=== PATIENT | female | born 1935 | race Caucasian/White ===

== ENCOUNTER 2017-07-24 07:05 | Day surgery (SDC) | payer MEDICARE ==
[2017-07-24] MEDS ORDERED: Lactated Ringers 1,000 ML IV SCH (07:30)
[2017-07-24] MEDS ORDERED: Propofol 200 MG/20 ML SDV ONE (07:55)
[2017-07-24] MEDS ORDERED: Midazolam 1 MG/ML 2 ML SDV ONE (07:55)
[2017-07-24] MEDS ORDERED: fentaNYL 100 MCG/2 ML SDV ONE (07:55)
[2017-07-24 10:08] VITALS: BP 153/74
--- NOTE | 2017-07-24 12:43 | OR ---
DATE OF PROCEDURE: 07/24/2017 PREOPERATIVE DIAGNOSIS: History of colonic adenomatous polyps. POSTOPERATIVE DIAGNOSES: Diverticulosis, multiple colon polyps, and history of colonic adenomatous polyps. PROCEDURE: Colonoscopy to the cecum with biopsy resection of small polyps at 35 cm, 45 cm, 75 cm, right colon, and proximal transverse colon. SURGEON: Anthony Helm M.D. ANESTHESIA: IV anesthesia with monitored anesthesia care. INDICATION: This 81-year-old white female is here for a colonoscopy because of a history of adenomatous colon polyps. I counseled her for the procedure, including risks and alternatives, and she gave her informed consent to proceed. DESCRIPTION OF PROCEDURE: The patient was placed in the left lateral decubitus position. IV anesthesia was administered by the Anesthesia Service. Time-out was held. A rectal exam was performed, which was unremarkable. The flexible video Olympus colonoscope was introduced through her anus, up her rectum, and out her colon, all the way to the cecum. En route, we encountered polyps at 35 cm, 45 cm, and 75 cm, which were removed with the biopsy forceps. In the right colon, we then also saw another one, which was again small and removed with the biopsy forceps. Once the cecum was reached, the scope was slowly withdrawn, examining the mucosa throughout. We saw another polyp in the proximal transverse colon, which was removed with the biopsy forceps. The scope was withdrawn further with no other lesions noted until left colon was reached. Here and in the sigmoid colon, we saw a few scattered diverticula. There was no bleeding or inflammation associated with them. In the rectum, the scope was retroflexed with the distal rectum appearing unremarkable. The scope was straightened and removed. She tolerated the procedure well. Anthony Helm MD /[id number]
== END 2017-07-24 10:15 | disposition home or self-care (01) ==
LOC: JP.SDS 07:05
PROVIDERS: ATTEND Surgery
DX: D12.0 Benign neoplasm of cecum (principal); D12.2 Benign neoplasm of ascending colon; D12.3 Benign neoplasm of transverse colon; K57.30 Diverticulosis of large intestine without perforation or abscess without bleeding; I12.9 Hypertensive chronic kidney disease with stage 1 through stage 4 chronic kidney disease, or unspecified chronic kidney disease; E11.22 Type 2 diabetes mellitus with diabetic chronic kidney disease; N18.3 Chronic kidney disease, stage 3 (moderate); E78.5 Hyperlipidemia, unspecified; E03.9 Hypothyroidism, unspecified; Z86.010 Personal history of colon polyps; Z88.5 Allergy status to narcotic agent; Z88.8 Allergy status to other drugs, medicaments and biological substances
CPT/HCPCS: 45380; 88305; J2250; J2704; J3010; J7120

== ENCOUNTER 2020-08-05 06:14 | Day surgery (SDC) | payer MEDICARE ==
[2020-08-05] MEDS ORDERED: Dextrose 5%-Lactated Ringers 1,000 ML IV SCH (07:00)
[2020-08-05] MEDS ORDERED: fentaNYL 100 MCG/2 ML SDV ONE (07:21)
[2020-08-05] MEDS ORDERED: Propofol 200 MG/20 ML SDV ONE ×2 (07:21→08:58)
[2020-08-05] MEDS ORDERED: Metoprolol Tartrate 25 MG Tab PO ONE (07:30)
[2020-08-05 10:18] VITALS: BP 147/81; PULSE 68
--- NOTE | 2020-08-26 14:28 | OR ---
DATE OF PROCEDURE: 08/05/2020 SURGEON: Kin Stratton MD PREOPERATIVE DIAGNOSIS: History of colon polyps. POSTOPERATIVE DIAGNOSIS: Multiple (seven polyps) involving ascending colon, hepatic flexure, and splenic flexure. OPERATIVE PROCEDURE: Flexible colonoscopy with: 1. Polypectomy by snare technique x5. 2. Polypectomy by cold biopsy forceps x2. ANESTHESIA: IV sedation. INDICATIONS FOR PROCEDURE: This is an 85-year-old female presenting for followup colonoscopy who has history of previous colon polyps in the past. Plan is to proceed with colonoscopy with biopsies and/or polypectomy. Potential risks including bleeding and perforation were discussed, and the patient wishes to proceed. DETAILS OF PROCEDURE: The patient was taken to the operating room and placed in a left lateral decubitus position. IV sedation was administered, after which the initial digital rectal exam was performed and was unremarkable. Colonoscope was then passed into the rectum with retroflexion revealing uncomplicated hemorrhoidal columns. Scope was eventually passed to the level of the cecum. The prep was fairly good with only small amount of liquid stool being present. Overall, the patient had a total of seven polyps involving the ascending colon, hepatic flexure, and splenic flexure. Two of these, one in the ascending colon and one in the hepatic flexure were small enough to be removed by cold biopsy forceps. The remainder were removed by means of a snare technique. Each of these were sent for histologic evaluation and good hemostasis was noted. Procedure was then concluded. The size of these were up to roughly 8 mm to 10 mm and likely all benign based on their size case. The patient given the multitude of polyps will probably undergo a repeat colonoscopy in one year. Kin Stratton MD /[id number]
== END 2020-08-05 10:29 | disposition home or self-care (01) ==
LOC: JP.SDS 06:14
PROVIDERS: ATTEND Surgery
DX: Z12.11 Encounter for screening for malignant neoplasm of colon (principal); D12.2 Benign neoplasm of ascending colon; D12.3 Benign neoplasm of transverse colon; K64.9 Unspecified hemorrhoids; I48.91 Unspecified atrial fibrillation; K21.9 Gastro-esophageal reflux disease without esophagitis; N18.30 Chronic kidney disease, stage 3 unspecified; E11.22 Type 2 diabetes mellitus with diabetic chronic kidney disease
CPT/HCPCS: 45380; 45385; 88305; A9270; J2704; J3010; J7121

== ENCOUNTER 2021-08-08 06:23 | Day surgery (SDC) | payer MEDICARE ==
[2021-08-08] MEDS ORDERED: Lactated Ringers 1,000 ML IV SCH (07:00)
[2021-08-08] MEDS ORDERED: fentaNYL 100 MCG/2 ML SDV ONE (07:10)
[2021-08-08] MEDS ORDERED: Propofol 200 MG/20 ML SDV ONE (07:10)
[2021-08-08 08:59] VITALS: PULSE 63
[2021-08-08 09:05] VITALS: BP 162/87
== END 2021-08-08 09:24 | disposition home or self-care (01) ==
LOC: JP.SDS 06:23
PROVIDERS: ATTEND Family Medicine
DX: Z12.11 Encounter for screening for malignant neoplasm of colon (principal); D12.0 Benign neoplasm of cecum; D12.2 Benign neoplasm of ascending colon; I13.0 Hypertensive heart and chronic kidney disease with heart failure and stage 1 through stage 4 chronic kidney disease, or unspecified chronic kidney disease; I48.91 Unspecified atrial fibrillation; N18.30 Chronic kidney disease, stage 3 unspecified; E11.22 Type 2 diabetes mellitus with diabetic chronic kidney disease; E03.9 Hypothyroidism, unspecified; M81.0 Age-related osteoporosis without current pathological fracture; K21.9 Gastro-esophageal reflux disease without esophagitis; Z88.5 Allergy status to narcotic agent; Z88.8 Allergy status to other drugs, medicaments and biological substances; Z98.890 Other specified postprocedural states; Z90.49 Acquired absence of other specified parts of digestive tract
CPT/HCPCS: J2704; J3010; J7120

== ENCOUNTER 2023-01-20 13:26 | Emergency (ER) | payer MEDICARE ==
[2023-01-20] MEDS ORDERED: Methocarbamol 500 MG Tab PO ONE (14:27)
[2023-01-20 15:03] VITALS: BP 181/94; PULSE 60
== END 2023-01-20 15:18 | disposition home or self-care (01) ==
LOC: JP.ED 13:26
DX: S16.1XXA Strain of muscle, fascia and tendon at neck level, initial encounter (principal); E11.9 Type 2 diabetes mellitus without complications; M19.90 Unspecified osteoarthritis, unspecified site; I48.91 Unspecified atrial fibrillation; E78.00 Pure hypercholesterolemia, unspecified; I10 Essential (primary) hypertension; Z95.0 Presence of cardiac pacemaker; Z86.16 Personal history of COVID-19; Z79.01 Long term (current) use of anticoagulants; Z79.82 Long term (current) use of aspirin; Z79.899 Other long term (current) drug therapy; Z88.5 Allergy status to narcotic agent; Z88.8 Allergy status to other drugs, medicaments and biological substances
CPT/HCPCS: 99283; A9270

== ENCOUNTER 2023-05-20 10:41 | Emergency (ER) | payer MEDICARE ==
[2023-05-20 12:00] LABS: CORONAVIRUS COVID-19 NAA NEGATIVE (NEGATIVE); INFLUENZA A NAA NEGATIVE (NEGATIVE); INFLUENZA B NAA NEGATIVE (NEGATIVE); RESPIRATORY SYNCYTIAL VIR NAA NEGATIVE (NEGATIVE)
[2023-05-20 12:00] LABS: BASOPHILS PERCENT AUTO 0.2 % (0.1-1.3); EOSINOPHILS ABSOLUTE AUTO 0.12 K/uL (0.00-0.40); EOSINOPHILS PERCENT AUTO 2.2 % (0.0-5.4); HEMATOCRIT 33.8 % (34.3-46.0); HEMOGLOBIN 11.1 g/dL (11.2-15.5); IMMATURE GRAN ABSOLUTE AUTO 0.05 K/uL (0.00-0.23); IMMATURE GRAN PERCENT AUTO 0.9 % (0.0-0.7); LYMPHOCYTES ABSOLUTE AUTO 0.54 K/uL (0.8-3.3); LYMPHOCYTES PERCENT AUTO 9.7 % (11.4-47.7); MEAN CORPUSCULAR HEMOGLOBIN 32.2 pg (31.6-35.5); MEAN CORPUSCULAR HGB CONC 32.8 g/dL (31.6-35.5); MONOCYTES ABSOLUTE AUTO 0.53 K/uL (0.20-0.90); MONOCYTES PERCENT AUTO 9.5 % (3.3-12.6); NEUTROPHILS ABSOLUTE AUTO 4.32 K/uL (1.0-7.6); NEUTROPHILS PERCENT AUTO 77.5 % (40.0-78.1); PLATELET COUNT,PLT 193 K/uL (130-375); RED BLOOD CELL COUNT 3.45 M/uL (3.77-5.24); WHITE BLOOD CELL COUNT,WBC 5.6 K/uL (3.2-11.0)
[2023-05-20 12:01] LABS: BASOPHILS ABSOLUTE AUTO 0.01 K/uL (0.00-0.10)
[2023-05-20 12:18] LABS: INR 2.1
[2023-05-20 12:30] LABS: ANION GAP 13.9 mmol/L (5.0-14.0); CALCIUM 8.5 mg/dL (8.5-10.1); CREATININE 1.2 mg/dL (0.6-1.0); EST CRCL DRUG DOSING (CG) 23.72 mL/min; POTASSIUM,K 3.9 mmol/L (3.6-5.2)
[2023-05-20 14:40] VITALS: BP 107/71; PULSE 64
== END 2023-05-20 17:05 | disposition home or self-care (01) ==
LOC: JP.ED 10:41
DX: R09.02 Hypoxemia (principal); J47.9 Bronchiectasis, uncomplicated; D64.9 Anemia, unspecified; I11.0 Hypertensive heart disease with heart failure; I50.9 Heart failure, unspecified; E78.00 Pure hypercholesterolemia, unspecified; E11.9 Type 2 diabetes mellitus without complications; Z88.5 Allergy status to narcotic agent; Z79.01 Long term (current) use of anticoagulants; Z88.8 Allergy status to other drugs, medicaments and biological substances; Z79.82 Long term (current) use of aspirin; Z79.899 Other long term (current) drug therapy
CPT/HCPCS: 0241U; 36415; 71046; 71250; 80048; 83880; 84145; 84484; 85025; 85610; 93005; 99285; 93010; 99284

== ENCOUNTER 2024-06-05 12:14 | Emergency (ER) | payer MEDICARE ==
[2024-06-05 14:13] LABS: BASOPHILS PERCENT AUTO 0.4 % (0.1-1.3); EOSINOPHILS ABSOLUTE AUTO 0.13 K/uL (0.00-0.40); EOSINOPHILS PERCENT AUTO 2.4 % (0.0-5.4); HEMATOCRIT 35.5 % (34.3-46.0); HEMOGLOBIN 11.5 g/dL (11.2-15.5); IMMATURE GRAN ABSOLUTE AUTO 0.03 K/uL (0.00-0.23); IMMATURE GRAN PERCENT AUTO 0.5 % (0.0-0.7); LYMPHOCYTES ABSOLUTE AUTO 0.87 K/uL (0.8-3.3); LYMPHOCYTES PERCENT AUTO 15.9 % (11.4-47.7); MEAN CORPUSCULAR HEMOGLOBIN 32.9 pg (31.6-35.5); MEAN CORPUSCULAR HGB CONC 32.4 g/dL (31.6-35.5); MEAN CORPUSCULAR VOLUME 101.4 fL (81.4-99.0); MONOCYTES ABSOLUTE AUTO 0.49 K/uL (0.20-0.90); NEUTROPHILS ABSOLUTE AUTO 3.93 K/uL (1.0-7.6); NEUTROPHILS PERCENT AUTO 71.8 % (40.0-78.1); PLATELET COUNT,PLT 192 K/uL (130-375); WHITE BLOOD CELL COUNT,WBC 5.5 K/uL (3.2-11.0)
[2024-06-05 14:17] LABS: BASOPHILS ABSOLUTE AUTO 0.02 K/uL (0.00-0.10)
[2024-06-05 14:26] LABS: APPEARANCE,URINE CLEAR (CLEAR); BILIRUBIN,URINE NEGATIVE (NEGATIVE); COLOR,URINE YELLOW (YELLOW); GLUCOSE,URINE NEGATIVE (NEGATIVE); KETONES,URINE NEGATIVE (NEGATIVE); LEUKOCYTE ESTERASE,URINE NEGATIVE (NEGATIVE); NITRITE,URINE NEGATIVE (NEGATIVE); OCCULT BLOOD,URINE NEGATIVE (NEGATIVE); PROTEIN,URINE NEGATIVE (NEGATIVE); UROBILINOGEN,URINE 0.2 EU/dL (0.2-1.0)
[2024-06-05 14:29] LABS: INR 2.7; PROTHROMBIN TIME 26.2 sec (9.2-10.6)
[2024-06-05 14:34] LABS: AMORPHOUS SEDIMENT,URINE OCCASIONAL; BACTERIA,URINE NOT SEEN; EPITHELIAL CELLS,URINE NOT SEEN; MUCUS,URINE NOT SEEN; RBC,URINE NOT SEEN (0-5); WBC,URINE NOT SEEN (0-5)
[2024-06-05] MEDS ORDERED: niCARdipine HCl 25 MG in Sodium Chloride 0.9% 240 ML IV SCH (15:00)
[2024-06-05] MEDS ORDERED: Factor IX Complex Human 500 UNIT VIAL IVPUSH ONE (15:01)
[2024-06-05] MEDS: niCARdipine HCl 25 MG in Sodium Chloride 0.9% 240 ML IV SCH (15:12)
[2024-06-05 15:14] VITALS: BP 172/84; PULSE 67
[2024-06-05] MEDS: Factor IX Complex Human 500 UNIT VIAL IVPUSH ONE (15:33)
== END 2024-06-05 15:44 ==
LOC: JP.ED 12:14
DX: I61.9 Nontraumatic intracerebral hemorrhage, unspecified (principal); I10 Essential (primary) hypertension; I48.91 Unspecified atrial fibrillation; E11.9 Type 2 diabetes mellitus without complications; Z90.710 Acquired absence of both cervix and uterus; Z88.5 Allergy status to narcotic agent; Z88.8 Allergy status to other drugs, medicaments and biological substances; Z79.01 Long term (current) use of anticoagulants; Z79.890 Hormone replacement therapy; Z79.899 Other long term (current) drug therapy
CPT/HCPCS: 36415; 70450; 80053; 81001; 85025; 85610; 93005; 93010; 96365; 96375; 99285; J2404; J7168

== ENCOUNTER 2024-08-02 20:42 | Inpatient (IN) | payer MEDICARE ==
[2024-08-02 20:57] LABS: BASOPHILS ABSOLUTE AUTO 0.03 K/uL (0.00-0.10); BASOPHILS PERCENT AUTO 0.2 % (0.1-1.3); EOSINOPHILS ABSOLUTE AUTO 0.27 K/uL (0.00-0.40); EOSINOPHILS PERCENT AUTO 2.1 % (0.0-5.4); HEMOGLOBIN 10.4 g/dL (11.2-15.5); IMMATURE GRAN ABSOLUTE AUTO 0.06 K/uL (0.00-0.23); IMMATURE GRAN PERCENT AUTO 0.5 % (0.0-0.7); LYMPHOCYTES ABSOLUTE AUTO 2.35 K/uL (0.8-3.3); LYMPHOCYTES PERCENT AUTO 18.7 % (11.4-47.7); MEAN CORPUSCULAR HEMOGLOBIN 33.1 pg (31.6-35.5); MEAN CORPUSCULAR HGB CONC 31.5 g/dL (31.6-35.5); MEAN CORPUSCULAR VOLUME 105.1 fL (81.4-99.0); MONOCYTES ABSOLUTE AUTO 1.16 K/uL (0.20-0.90); MONOCYTES PERCENT AUTO 9.2 % (3.3-12.6); NEUTROPHILS ABSOLUTE AUTO 8.72 K/uL (1.0-7.6); NEUTROPHILS PERCENT AUTO 69.3 % (40.0-78.1); PLATELET COUNT,PLT 198 K/uL (130-375); RED BLOOD CELL COUNT 3.14 M/uL (3.77-5.24); WHITE BLOOD CELL COUNT,WBC 12.6 K/uL (3.2-11.0)
[2024-08-02] MEDS: Ondansetron 4 MG/2 ML SDV IVPUSH ONE (20:58)
[2024-08-02 21:06] LABS: BASE EXCESS ARTERIAL -0.4 mm/L; BICARBONATE,ARTERIAL 23.8 mmol/L (22.0-26.0); CARBOXYHEMOGLOBIN 1.4 % (0.0-1.6); METHEMOGLOBIN 0.8 %; O2 SATURATION ARTERIAL 80.3 % (95.0-98.0); OXYHEMOGLOBIN 78.5 %; PCO2 ARTERIAL 39.9 mmHg (35.0-42.0); PO2 ARTERIAL 48.9 mmHg (75.0-100.0); TOTAL HEMOGLOBIN 10.4 g/dL (12.0-16.0)
[2024-08-02 21:19] LABS: A/G RATIO 0.9 (1.2-2.2); ALANINE AMINOTRANSFERASE,ALT 19 U/L (12-78); ALBUMIN 3.6 g/dL (3.4-5.0); ALKALINE PHOSPHATASE 79 U/L (46-116); ASPARTATE AMNIOTRANSFERASE,AST 16 U/L (15-37); BILIRUBIN TOTAL 0.3 mg/dL (0.2-1.0); BLOOD UREA NITROGEN,BUN 18 mg/dL (7-18); C-REACTIVE PROTEIN 0.71 mg/dL (<0.50); CALCIUM 9.3 mg/dL (8.5-10.1); CARBON DIOXIDE,CO2 26 mmol/L (21-32); CHLORIDE,CL 102 mmol/L (100-108); CREATININE 1.1 mg/dL (0.6-1.0); ESTIMATED GFR 48 mL/min (>60); GLUCOSE RANDOM 206 mg/dL (74-106); POTASSIUM,K 3.7 mmol/L (3.6-5.2); PROTEIN TOTAL,TP 7.5 g/dL (6.4-8.2); SODIUM,NA 139 mmol/L (140-148)
[2024-08-02 21:20] LABS: ANION GAP 14.7 mmol/L (5.0-14.0)
[2024-08-02 21:26] LABS: LACTIC ACID 2.6 mmol/L (0.4-2.0)
[2024-08-02] MEDS: Ondansetron 4 MG/2 ML SDV ONE (21:47)
[2024-08-02] MEDS: Albuterol/Ipratropium 3.0-0.5 MG/3 ML Neb Soln NEB ONE ×2 (22:00→23:24)
[2024-08-02 22:21] LABS: INR 1.3; PROTHROMBIN TIME 12.9 sec (9.2-10.6)
[2024-08-02] MEDS: Levofloxacin/Dextrose 5%-Water 750 MG in Premix Bag 1 BAG IV ONE (23:12)
[2024-08-03] MEDS: Sodium Chloride 0.9% 1,000 ML IV SCH (00:19)
[2024-08-03 01:03] LABS: CORONAVIRUS COVID-19 NAA NEGATIVE (NEGATIVE); INFLUENZA A NAA NEGATIVE (NEGATIVE); INFLUENZA B NAA NEGATIVE (NEGATIVE); RESPIRATORY SYNCYTIAL VIR NAA NEGATIVE (NEGATIVE)
[2024-08-03] MEDS ORDERED: Ondansetron 4 MG Tab.DIS PO PRN (01:30)
[2024-08-03] MEDS ORDERED: Melatonin 3 MG Tab PO PRN (01:30)
[2024-08-03] MEDS: Albuterol 0.083% 2.5 MG/3 ML Neb Soln NEB PRN (01:43)
[2024-08-03] MEDS: Albuterol 0.083% 2.5 MG/3 ML Neb Soln ONE (01:44)
[2024-08-03] MEDS: Ondansetron 4 MG/2 ML SDV IV PRN (02:23)
[2024-08-03] MEDS: Morphine 10 MG/0.5 ML Oral Syringe PO PRN (02:38)
[2024-08-03] MEDS: Furosemide 40 MG/4 ML VIAL IVPUSH ONE (03:14)
[2024-08-03 05:48] LABS: HEMATOCRIT 28.5 % (34.3-46.0); MEAN CORPUSCULAR HEMOGLOBIN 33.1 pg (31.6-35.5); MEAN CORPUSCULAR HGB CONC 31.6 g/dL (31.6-35.5); MEAN CORPUSCULAR VOLUME 104.8 fL (81.4-99.0); RED BLOOD CELL COUNT 2.72 M/uL (3.77-5.24); WHITE BLOOD CELL COUNT,WBC 6.5 K/uL (3.2-11.0)
[2024-08-03] MEDS ORDERED: Albuterol/Ipratropium 3.0-0.5 MG/3 ML Neb Soln NEB SCH (06:00)
[2024-08-03 06:04] LABS: ANION GAP 10.5 mmol/L (5.0-14.0); CALCIUM 8.6 mg/dL (8.5-10.1); EST CRCL DRUG DOSING (CG) 27.39 mL/min; POTASSIUM,K 4.2 mmol/L (3.6-5.2)
[2024-08-03] MEDS: Albuterol/Ipratropium 3.0-0.5 MG/3 ML Neb Soln NEB SCH ×2 (06:57→10:35)
[2024-08-03] MEDS: Levothyroxine 50 MCG Tab PO SCH (08:03)
[2024-08-03] MEDS: Pantoprazole 40 MG Tab.CR PO SCH (08:03)
[2024-08-03] MEDS ORDERED: Apixaban 5 MG Tab PO SCH (09:00)
[2024-08-03] MEDS: Lactobacillus Rhamnosus GG (Probiotic) Cap PO SCH (09:30)
[2024-08-03] MEDS: Apixaban 5 MG Tab PO SCH ×2 (09:30→20:47)
[2024-08-03] MEDS: Losartan 50 MG Tab PO SCH (09:30)
[2024-08-03] MEDS: cefTAZidime Pentahydrate 2 GM in Sodium Chloride 0.9% 50 ML IV SCH (09:32)
[2024-08-03] MEDS ORDERED: Sodium Chloride 0.9% 10 ML Syringe IV PRN (15:24)
[2024-08-03] MEDS: Benzonatate 100 MG Cap PO PRN (16:46)
[2024-08-03] MEDS: Acetaminophen 325 MG Tab PO PRN (17:23)
[2024-08-03] MEDS: Gabapentin 100 MG Cap PO SCH (20:48)
[2024-08-04] MEDS: guaiFENesin 100 MG/5 ML Soln 10 ML UD Cup PO PRN (03:21)
[2024-08-04 05:49] LABS: HEMATOCRIT 28.9 % (34.3-46.0); HEMOGLOBIN 9.2 g/dL (11.2-15.5); MEAN CORPUSCULAR HEMOGLOBIN 33.8 pg (31.6-35.5); MEAN CORPUSCULAR HGB CONC 31.8 g/dL (31.6-35.5); MEAN CORPUSCULAR VOLUME 106.3 fL (81.4-99.0); RED BLOOD CELL COUNT 2.72 M/uL (3.77-5.24)
[2024-08-04 06:10] LABS: ANION GAP 6.7 mmol/L (5.0-14.0); C-REACTIVE PROTEIN 11.17 mg/dL (<0.50); CALCIUM 8.9 mg/dL (8.5-10.1); CREATININE 1.1 mg/dL (0.6-1.0); EST CRCL DRUG DOSING (CG) 24.9 mL/min; POTASSIUM,K 4.6 mmol/L (3.6-5.2)
[2024-08-04] MEDS: Levothyroxine 25 MCG Tab PO SCH (07:15)
[2024-08-04] MEDS: Apixaban 2.5 MG Tab PO SCH (08:21)
[2024-08-04] MEDS: Furosemide 40 MG/4 ML VIAL IVPUSH SCH (10:01)
[2024-08-04] MEDS: Levofloxacin/Dextrose 5%-Water 750 MG in Premix Bag 1 BAG IV SCH (22:21)
[2024-08-05 05:56] LABS: BASOPHILS PERCENT AUTO 0.3 % (0.1-1.3); EOSINOPHILS ABSOLUTE AUTO 0.15 K/uL (0.00-0.40); EOSINOPHILS PERCENT AUTO 2.1 % (0.0-5.4); HEMATOCRIT 27.4 % (34.3-46.0); HEMOGLOBIN 8.6 g/dL (11.2-15.5); IMMATURE GRAN ABSOLUTE AUTO 0.05 K/uL (0.00-0.23); IMMATURE GRAN PERCENT AUTO 0.7 % (0.0-0.7); LYMPHOCYTES ABSOLUTE AUTO 0.95 K/uL (0.8-3.3); LYMPHOCYTES PERCENT AUTO 13.1 % (11.4-47.7); MEAN CORPUSCULAR HEMOGLOBIN 32.7 pg (31.6-35.5); MEAN CORPUSCULAR HGB CONC 31.4 g/dL (31.6-35.5); MEAN CORPUSCULAR VOLUME 104.2 fL (81.4-99.0); MONOCYTES ABSOLUTE AUTO 0.56 K/uL (0.20-0.90); MONOCYTES PERCENT AUTO 7.7 % (3.3-12.6); NEUTROPHILS ABSOLUTE AUTO 5.53 K/uL (1.0-7.6); NEUTROPHILS PERCENT AUTO 76.1 % (40.0-78.1); PLATELET COUNT,PLT 138 K/uL (130-375); RED BLOOD CELL COUNT 2.63 M/uL (3.77-5.24); WHITE BLOOD CELL COUNT,WBC 7.3 K/uL (3.2-11.0)
[2024-08-05 06:07] LABS: BASOPHILS ABSOLUTE AUTO 0.02 K/uL (0.00-0.10)
[2024-08-05 06:10] LABS: CALCIUM 8.9 mg/dL (8.5-10.1); CREATININE 1.4 mg/dL (0.6-1.0); EST CRCL DRUG DOSING (CG) 19.57 mL/min; POTASSIUM,K 3.9 mmol/L (3.6-5.2)
[2024-08-05 06:13] LABS: ANION GAP 10.9 mmol/L (5.0-14.0)
[2024-08-05] MEDS: Sennosides/Docusate Sodium 50-8.6 MG Tab PO PRN (10:31)
[2024-08-06 06:06] LABS: HEMATOCRIT 26.2 % (34.3-46.0); HEMOGLOBIN 8.3 g/dL (11.2-15.5); MEAN CORPUSCULAR HEMOGLOBIN 33.1 pg (31.6-35.5); MEAN CORPUSCULAR HGB CONC 31.7 g/dL (31.6-35.5); MEAN CORPUSCULAR VOLUME 104.4 fL (81.4-99.0); RED BLOOD CELL COUNT 2.51 M/uL (3.77-5.24); WHITE BLOOD CELL COUNT,WBC 6.8 K/uL (3.2-11.0)
[2024-08-06 06:33] LABS: A/G RATIO 0.6 (1.2-2.2); ALANINE AMINOTRANSFERASE,ALT 71 U/L (12-78); ALBUMIN 2.5 g/dL (3.4-5.0); ALKALINE PHOSPHATASE 73 U/L (46-116); ASPARTATE AMNIOTRANSFERASE,AST 46 U/L (15-37); BILIRUBIN TOTAL 0.7 mg/dL (0.2-1.0); BLOOD UREA NITROGEN,BUN 27 mg/dL (7-18); CALCIUM 9.1 mg/dL (8.5-10.1); CARBON DIOXIDE,CO2 31 mmol/L (21-32); CHLORIDE,CL 102 mmol/L (100-108); CREATININE 1.1 mg/dL (0.6-1.0); ESTIMATED GFR 48 mL/min (>60); GLUCOSE RANDOM 126 mg/dL (74-106); POTASSIUM,K 3.9 mmol/L (3.6-5.2); PROTEIN TOTAL,TP 6.4 g/dL (6.4-8.2); SODIUM,NA 140 mmol/L (140-148)
[2024-08-06] MEDS: methylPREDNISolone Sodium Succinate 40 MG/1 ML SDV IVPUSH SCH (10:15)
[2024-08-07 06:03] LABS: HEMATOCRIT 26.7 % (34.3-46.0); HEMOGLOBIN 8.5 g/dL (11.2-15.5); MEAN CORPUSCULAR HEMOGLOBIN 32.7 pg (31.6-35.5); MEAN CORPUSCULAR HGB CONC 31.8 g/dL (31.6-35.5); MEAN CORPUSCULAR VOLUME 102.7 fL (81.4-99.0); RED BLOOD CELL COUNT 2.6 M/uL (3.77-5.24); WHITE BLOOD CELL COUNT,WBC 4.8 K/uL (3.2-11.0)
[2024-08-07 06:31] LABS: A/G RATIO 0.6 (1.2-2.2); ALANINE AMINOTRANSFERASE,ALT 64 U/L (12-78); ALBUMIN 2.5 g/dL (3.4-5.0); ALKALINE PHOSPHATASE 75 U/L (46-116); ASPARTATE AMNIOTRANSFERASE,AST 35 U/L (15-37); BILIRUBIN TOTAL 0.6 mg/dL (0.2-1.0); BLOOD UREA NITROGEN,BUN 29 mg/dL (7-18); C-REACTIVE PROTEIN 15.01 mg/dL (<0.50); CALCIUM 9.5 mg/dL (8.5-10.1); CARBON DIOXIDE,CO2 31 mmol/L (21-32); CHLORIDE,CL 101 mmol/L (100-108); EST CRCL DRUG DOSING (CG) 27.39 mL/min; ESTIMATED GFR 54 mL/min (>60); GLUCOSE RANDOM 169 mg/dL (74-106); POTASSIUM,K 4.8 mmol/L (3.6-5.2); PROTEIN TOTAL,TP 6.6 g/dL (6.4-8.2); SODIUM,NA 139 mmol/L (140-148)
[2024-08-07 06:32] LABS: ANION GAP 11.8 mmol/L (5.0-14.0)
[2024-08-08 05:45] LABS: HEMATOCRIT 26.9 % (34.3-46.0); HEMOGLOBIN 8.5 g/dL (11.2-15.5); MEAN CORPUSCULAR HEMOGLOBIN 33.1 pg (31.6-35.5); MEAN CORPUSCULAR HGB CONC 31.6 g/dL (31.6-35.5); MEAN CORPUSCULAR VOLUME 104.7 fL (81.4-99.0); RED BLOOD CELL COUNT 2.57 M/uL (3.77-5.24); WHITE BLOOD CELL COUNT,WBC 6.9 K/uL (3.2-11.0)
[2024-08-08 06:08] LABS: A/G RATIO 0.6 (1.2-2.2); ALANINE AMINOTRANSFERASE,ALT 48 U/L (12-78); ALBUMIN 2.5 g/dL (3.4-5.0); ALKALINE PHOSPHATASE 72 U/L (46-116); ANION GAP 10.7 mmol/L (5.0-14.0); ASPARTATE AMNIOTRANSFERASE,AST 23 U/L (15-37); BILIRUBIN TOTAL 0.4 mg/dL (0.2-1.0); BLOOD UREA NITROGEN,BUN 33 mg/dL (7-18); C-REACTIVE PROTEIN 8.56 mg/dL (<0.50); CALCIUM 9.1 mg/dL (8.5-10.1); CARBON DIOXIDE,CO2 33 mmol/L (21-32); CHLORIDE,CL 102 mmol/L (100-108); EST CRCL DRUG DOSING (CG) 27.39 mL/min; ESTIMATED GFR 54 mL/min (>60); GLUCOSE RANDOM 145 mg/dL (74-106); POTASSIUM,K 4.7 mmol/L (3.6-5.2); PROTEIN TOTAL,TP 6.4 g/dL (6.4-8.2); SODIUM,NA 141 mmol/L (140-148)
[2024-08-08] MEDS: Furosemide 20 MG/2 ML VIAL IVPUSH SCH (11:52)
[2024-08-08] MEDS: Bumetanide 2.5 MG/10 ML MDV IVPUSH SCH (16:14)
[2024-08-09] MEDS ORDERED: Bumetanide 1 MG/4 ML MDV IVPUSH SCH (15:00)
[2024-08-09] MEDS: Bumetanide 1 MG/4 ML MDV IVPUSH SCH (15:09)
[2024-08-10 05:42] LABS: HEMOGLOBIN 9.5 g/dL (11.2-15.5); MEAN CORPUSCULAR HEMOGLOBIN 32.9 pg (31.6-35.5); MEAN CORPUSCULAR HGB CONC 31.7 g/dL (31.6-35.5); MEAN CORPUSCULAR VOLUME 103.8 fL (81.4-99.0); RED BLOOD CELL COUNT 2.89 M/uL (3.77-5.24); WHITE BLOOD CELL COUNT,WBC 7.4 K/uL (3.2-11.0)
[2024-08-10 06:06] LABS: A/G RATIO 0.7 (1.2-2.2); ALANINE AMINOTRANSFERASE,ALT 37 U/L (12-78); ALBUMIN 2.7 g/dL (3.4-5.0); ALKALINE PHOSPHATASE 74 U/L (46-116); ASPARTATE AMNIOTRANSFERASE,AST 16 U/L (15-37); BILIRUBIN TOTAL 0.5 mg/dL (0.2-1.0); BLOOD UREA NITROGEN,BUN 45 mg/dL (7-18); C-REACTIVE PROTEIN 4.37 mg/dL (<0.50); CALCIUM 9.5 mg/dL (8.5-10.1); CARBON DIOXIDE,CO2 41 mmol/L (21-32); CHLORIDE,CL 100 mmol/L (100-108); CREATININE 1.4 mg/dL (0.6-1.0); EST CRCL DRUG DOSING (CG) 19.57 mL/min; ESTIMATED GFR 36 mL/min (>60); GLUCOSE RANDOM 139 mg/dL (74-106); POTASSIUM,K 4.2 mmol/L (3.6-5.2); PROTEIN TOTAL,TP 6.7 g/dL (6.4-8.2); SODIUM,NA 144 mmol/L (140-148)
[2024-08-10 06:17] LABS: ANION GAP 7.2 mmol/L (5.0-14.0)
[2024-08-10] MEDS: Codeine/guaiFENesin 10-100 MG/5 ML Syrup 5 ML Cup PO PRN (09:21)
[2024-08-11 05:58] LABS: HEMOGLOBIN 9.8 g/dL (11.2-15.5); MEAN CORPUSCULAR HEMOGLOBIN 32.9 pg (31.6-35.5); MEAN CORPUSCULAR HGB CONC 31.6 g/dL (31.6-35.5); RED BLOOD CELL COUNT 2.98 M/uL (3.77-5.24)
[2024-08-11 06:17] LABS: A/G RATIO 0.6 (1.2-2.2); ALANINE AMINOTRANSFERASE,ALT 30 U/L (12-78); ALBUMIN 2.7 g/dL (3.4-5.0); ALKALINE PHOSPHATASE 72 U/L (46-116); ANION GAP 8.2 mmol/L (5.0-14.0); ASPARTATE AMNIOTRANSFERASE,AST 17 U/L (15-37); BILIRUBIN TOTAL 0.4 mg/dL (0.2-1.0); BLOOD UREA NITROGEN,BUN 45 mg/dL (7-18); C-REACTIVE PROTEIN 3.96 mg/dL (<0.50); CALCIUM 9.7 mg/dL (8.5-10.1); CARBON DIOXIDE,CO2 39 mmol/L (21-32); CHLORIDE,CL 99 mmol/L (100-108); CREATININE 1.1 mg/dL (0.6-1.0); ESTIMATED GFR 48 mL/min (>60); GLUCOSE RANDOM 98 mg/dL (74-106); POTASSIUM,K 4.2 mmol/L (3.6-5.2); PROTEIN TOTAL,TP 6.9 g/dL (6.4-8.2); SODIUM,NA 142 mmol/L (140-148)
[2024-08-11] MEDS: Nystatin Susp 100,000 Unit/ML 5 ML UD Cup PO SCH (11:42)
[2024-08-11] MEDS: Bumetanide 1 MG/4 ML MDV IVPUSH SCH (11:42)
[2024-08-11] MEDS: Meropenem 500 MG in Sodium Chloride 0.9% 50 ML IV SCH (11:44)
[2024-08-11] MEDS: Doxycycline 100 MG Cap PO SCH (11:44)
[2024-08-11] MEDS: Magnesium Hydroxide 400 MG/5 ML Susp 30 ML Cup PO ONE (12:40)
[2024-08-11] MEDS: Bisacodyl 10 MG Supp RECTAL ONE (12:41)
[2024-08-11] MEDS: Sodium Phosphate,Monobasic/Sodium Phosphate,Dibasic Enema 133 ML Bottle RECTAL ONE (13:55)
[2024-08-12 05:58] LABS: HEMATOCRIT 33.3 % (34.3-46.0); HEMOGLOBIN 10.6 g/dL (11.2-15.5); MEAN CORPUSCULAR HEMOGLOBIN 33.1 pg (31.6-35.5); MEAN CORPUSCULAR HGB CONC 31.8 g/dL (31.6-35.5); MEAN CORPUSCULAR VOLUME 104.1 fL (81.4-99.0); RED BLOOD CELL COUNT 3.2 M/uL (3.77-5.24); WHITE BLOOD CELL COUNT,WBC 8.5 K/uL (3.2-11.0)
[2024-08-12 06:14] LABS: CALCIUM 9.5 mg/dL (8.5-10.1); CREATININE 1.1 mg/dL (0.6-1.0); EST CRCL DRUG DOSING (CG) 24.9 mL/min; MAGNESIUM 2.2 mg/dL (1.8-2.4); POTASSIUM,K 3.9 mmol/L (3.6-5.2)
[2024-08-12 06:15] LABS: ANION GAP 6.9 mmol/L (5.0-14.0)
[2024-08-13] MEDS: Bumetanide 1 MG/4 ML MDV IVPUSH SCH (07:40)
[2024-08-13] MEDS: predniSONE 20 MG Tab PO SCH (07:54)
[2024-08-13] MEDS: Polyethylene Glycol 3350 Powder 17 GM Packet PO SCH (08:59)
[2024-08-14 05:58] LABS: HEMATOCRIT 35.3 % (34.3-46.0); MEAN CORPUSCULAR HEMOGLOBIN 32.5 pg (31.6-35.5); MEAN CORPUSCULAR HGB CONC 31.2 g/dL (31.6-35.5); MEAN CORPUSCULAR VOLUME 104.4 fL (81.4-99.0); RED BLOOD CELL COUNT 3.38 M/uL (3.77-5.24); WHITE BLOOD CELL COUNT,WBC 8.8 K/uL (3.2-11.0)
[2024-08-14 06:19] LABS: C-REACTIVE PROTEIN 1.96 mg/dL (<0.50); CALCIUM 9.6 mg/dL (8.5-10.1); EST CRCL DRUG DOSING (CG) 27.39 mL/min; POTASSIUM,K 4.1 mmol/L (3.6-5.2)
[2024-08-14 06:28] LABS: ANION GAP 11.1 mmol/L (5.0-14.0)
[2024-08-16 06:06] LABS: C-REACTIVE PROTEIN 0.9 mg/dL (<0.50); CALCIUM 9.6 mg/dL (8.5-10.1); EST CRCL DRUG DOSING (CG) 27.39 mL/min; POTASSIUM,K 4.1 mmol/L (3.6-5.2)
[2024-08-16 06:12] LABS: ANION GAP 9.1 mmol/L (5.0-14.0)
[2024-08-17] MEDS: predniSONE 5 MG Tab PO SCH (07:47)
[2024-08-17] MEDS ORDERED: predniSONE 20 MG Tab PO SCH (08:00)
[2024-08-18 11:28] VITALS: BP 157/68; PULSE 59
== END 2024-08-18 12:19 | disposition swing bed (61) | DRG 193 ==
LOC: JP.ED 20:42 → JP.ICU 08-03 00:46 → JP.MS 08-08 14:28
PROVIDERS: ADMIT Registered Nurse; ATTEND Hospitalist
PROC: 5A0935A Assistance with Respiratory Ventilation, Less than 24 Consecutive Hours, High Flow/Velocity Cannula (ICD-10-PCS; principal; 2024-08-04)
DX: J18.9 Pneumonia, unspecified organism (principal); I50.33 Acute on chronic diastolic (congestive) heart failure; N18.9 Chronic kidney disease, unspecified; J96.01 Acute respiratory failure with hypoxia; I48.91 Unspecified atrial fibrillation; I48.11 Longstanding persistent atrial fibrillation; Z88.5 Allergy status to narcotic agent; J84.10 Pulmonary fibrosis, unspecified; Z66 Do not resuscitate; E78.00 Pure hypercholesterolemia, unspecified; K59.09 Other constipation; I12.9 Hypertensive chronic kidney disease with stage 1 through stage 4 chronic kidney disease, or unspecified chronic kidney disease; M19.90 Unspecified osteoarthritis, unspecified site; M54.9 Dorsalgia, unspecified; G89.29 Other chronic pain; F41.9 Anxiety disorder, unspecified; F32.A Depression, unspecified; E11.22 Type 2 diabetes mellitus with diabetic chronic kidney disease; N18.31 Chronic kidney disease, stage 3a; E86.0 Dehydration; I27.20 Pulmonary hypertension, unspecified; Z95.0 Presence of cardiac pacemaker; Z99.81 Dependence on supplemental oxygen; Z98.49 Cataract extraction status, unspecified eye; Z88.8 Allergy status to other drugs, medicaments and biological substances; Z79.899 Other long term (current) drug therapy; Z98.890 Other specified postprocedural states; Z86.73 Personal history of transient ischemic attack (TIA), and cerebral infarction without residual deficits; Z79.01 Long term (current) use of anticoagulants; Z90.710 Acquired absence of both cervix and uterus; Z88.6 Allergy status to analgesic agent
CPT/HCPCS: 0241U; 36415; 36600; 71045; 71250; 80048; 80053; 82803; 83605; 83690; 83735; 84145; 85025; 85027; 85610; 86140; 87040; 92610; 93306; 94640; 94667; 94668; 96365; 96375; 97110; 97163; 97165; 97530; 99285; A9270-GY; J0713; J1938; J1939; J1956; J2185; J2405; J2919; J3490; J7030; J7512

== ENCOUNTER 2024-08-18 12:17 | Inpatient (IN) | payer MEDICARE ==
[2024-08-18] MEDS ORDERED: Ondansetron 4 MG Tab.DIS PO PRN (12:58)
[2024-08-18] MEDS ORDERED: Polyethylene Glycol 3350 Powder 17 GM Packet PO PRN (12:58)
[2024-08-18] MEDS ORDERED: Acetaminophen 325 MG Tab PO PRN (13:02)
[2024-08-18] MEDS ORDERED: Calcium Carbonate 500 MG Tab.Chew PO PRN (13:14)
[2024-08-18] MEDS: Apixaban 2.5 MG Tab PO SCH (20:02)
[2024-08-18] MEDS: Gabapentin 100 MG Cap PO SCH (20:02)
[2024-08-18] MEDS: Albuterol/Ipratropium 3.0-0.5 MG/3 ML Neb Soln NEB PRN (20:07)
[2024-08-18] MEDS: Benzonatate 100 MG Cap PO PRN (20:07)
[2024-08-19] MEDS: Pantoprazole 40 MG Tab.CR PO SCH (07:31)
[2024-08-19] MEDS: Levothyroxine 25 MCG Tab PO SCH (07:31)
[2024-08-19] MEDS: Furosemide 40 MG Tab PO SCH (08:30)
[2024-08-19] MEDS: Fish Oil/Omega-3 Fatty Acids 1 Gm Cap PO SCH (08:30)
[2024-08-19] MEDS: Multivitamins with Iron/Calcium/Folic Acid/Minerals Tab PO SCH (08:30)
[2024-08-19] MEDS: Potassium Chloride 10 MEQ Cap.ER PO SCH (08:31)
[2024-08-19] MEDS: predniSONE 5 MG Tab PO SCH (08:31)
[2024-08-20] MEDS: Aloe Vera/Sodium Chloride Gel 14.1 GM Tube NAS PRN (16:41)
[2024-08-28 10:43] VITALS: BP 112/59; PULSE 60
== END 2024-08-28 10:40 | disposition home health service (06) | DRG 947 ==
LOC: JP.MS 12:17
PROVIDERS: ADMIT Hospitalist; ATTEND Internal Medicine
DX: R53.1 Weakness (principal); J96.21 Acute and chronic respiratory failure with hypoxia; I50.32 Chronic diastolic (congestive) heart failure; I13.0 Hypertensive heart and chronic kidney disease with heart failure and stage 1 through stage 4 chronic kidney disease, or unspecified chronic kidney disease; E78.00 Pure hypercholesterolemia, unspecified; I48.91 Unspecified atrial fibrillation; K59.09 Other constipation; F32.A Depression, unspecified; F41.9 Anxiety disorder, unspecified; N18.31 Chronic kidney disease, stage 3a; E11.22 Type 2 diabetes mellitus with diabetic chronic kidney disease; J84.10 Pulmonary fibrosis, unspecified; M19.90 Unspecified osteoarthritis, unspecified site; G89.29 Other chronic pain; M54.9 Dorsalgia, unspecified; Z88.8 Allergy status to other drugs, medicaments and biological substances; Z98.42 Cataract extraction status, left eye; Z98.41 Cataract extraction status, right eye; Z79.01 Long term (current) use of anticoagulants; Z95.0 Presence of cardiac pacemaker; Z86.73 Personal history of transient ischemic attack (TIA), and cerebral infarction without residual deficits; Z90.710 Acquired absence of both cervix and uterus; Z90.722 Acquired absence of ovaries, bilateral
CPT/HCPCS: 94640; 97110-GO; 97110-GP; 97161-GP; 97165-GO; 97530-GP; 97535-GO; 99305; 99308; 99315; A9270-GY; J7512

== ENCOUNTER 2024-09-01 23:41 | Inpatient (IN) | payer MEDICARE ==
[2024-09-02 00:04] LABS: BASE EXCESS ARTERIAL -2.6 mm/L; BICARBONATE,ARTERIAL 24.7 mmol/L (22.0-26.0); CARBOXYHEMOGLOBIN 1.5 % (0.0-1.6); METHEMOGLOBIN 0.3 %; OXYHEMOGLOBIN 50.1 %; PCO2 ARTERIAL 58.3 mmHg (35.0-42.0); TOTAL HEMOGLOBIN 10.9 g/dL (12.0-16.0)
[2024-09-02] MEDS: Magnesium Sulfate 2 GM/50 mL 2 GM in Premix Bag 1 BAG IV ONE (00:06)
[2024-09-02] MEDS: Ondansetron 4 MG/2 ML SDV IVPUSH ONE (00:06)
[2024-09-02] MEDS: methylPREDNISolone Sodium Succinate 125 MG/2 ML SDV IVPUSH ONE (00:06)
[2024-09-02 00:08] LABS: PO2 ARTERIAL 39.5 mmHg (75.0-100.0)
[2024-09-02 00:12] LABS: BASOPHILS ABSOLUTE AUTO 0.03 K/uL (0.00-0.10); BASOPHILS PERCENT AUTO 0.3 % (0.1-1.3); EOSINOPHILS ABSOLUTE AUTO 0.17 K/uL (0.00-0.40); EOSINOPHILS PERCENT AUTO 1.7 % (0.0-5.4); HEMATOCRIT 34.9 % (34.3-46.0); HEMOGLOBIN 10.5 g/dL (11.2-15.5); IMMATURE GRAN ABSOLUTE AUTO 0.42 K/uL (0.00-0.23); IMMATURE GRAN PERCENT AUTO 4.2 % (0.0-0.7); LYMPHOCYTES ABSOLUTE AUTO 1.97 K/uL (0.8-3.3); LYMPHOCYTES PERCENT AUTO 19.9 % (11.4-47.7); MEAN CORPUSCULAR HEMOGLOBIN 32.7 pg (31.6-35.5); MEAN CORPUSCULAR HGB CONC 30.1 g/dL (31.6-35.5); MEAN CORPUSCULAR VOLUME 108.7 fL (81.4-99.0); MONOCYTES ABSOLUTE AUTO 0.77 K/uL (0.20-0.90); MONOCYTES PERCENT AUTO 7.8 % (3.3-12.6); NEUTROPHILS ABSOLUTE AUTO 6.56 K/uL (1.0-7.6); NEUTROPHILS PERCENT AUTO 66.1 % (40.0-78.1); PLATELET COUNT,PLT 138 K/uL (130-375); RED BLOOD CELL COUNT 3.21 M/uL (3.77-5.24); WHITE BLOOD CELL COUNT,WBC 9.9 K/uL (3.2-11.0)
[2024-09-02 00:25] LABS: A/G RATIO 0.8 (1.2-2.2); ALANINE AMINOTRANSFERASE,ALT 26 U/L (12-78); ALKALINE PHOSPHATASE 62 U/L (46-116); ANION GAP 14.8 mmol/L (5.0-14.0); ASPARTATE AMNIOTRANSFERASE,AST 30 U/L (15-37); BILIRUBIN TOTAL 0.6 mg/dL (0.2-1.0); BLOOD UREA NITROGEN,BUN 26 mg/dL (7-18); CALCIUM 9.5 mg/dL (8.5-10.1); CARBON DIOXIDE,CO2 26 mmol/L (21-32); CHLORIDE,CL 104 mmol/L (100-108); CREATININE 1.4 mg/dL (0.6-1.0); EST CRCL DRUG DOSING (CG) 21.55 mL/min; ESTIMATED GFR 36 mL/min (>60); POTASSIUM,K 4.8 mmol/L (3.6-5.2); PROTEIN TOTAL,TP 6.6 g/dL (6.4-8.2); SODIUM,NA 145 mmol/L (140-148)
[2024-09-02 00:30] LABS: GLUCOSE RANDOM 404 mg/dL (74-106)
[2024-09-02] MEDS: Morphine 2 MG/ML SYRINGE IVPUSH ONE (00:36)
[2024-09-02] MEDS: cefTRIAXone 1 GM in Sodium Chloride 0.9% 50 ML IV ONE (00:37)
[2024-09-02] MEDS: Furosemide 40 MG/4 ML VIAL IVPUSH ONE (00:37)
[2024-09-02] MEDS: Levofloxacin/Dextrose 5%-Water 500 MG in Premix Bag 1 BAG IV ONE (01:28)
[2024-09-02] MEDS ORDERED: Ondansetron 4 MG Tab.DIS PO PRN (02:30)
[2024-09-02] MEDS ORDERED: Ondansetron 4 MG/2 ML SDV IV PRN (02:30)
[2024-09-02] MEDS ORDERED: Sennosides/Docusate Sodium 50-8.6 MG Tab PO PRN (02:30)
[2024-09-02] MEDS ORDERED: Melatonin 3 MG Tab PO PRN (02:30)
[2024-09-02] MEDS ORDERED: Albuterol 0.083% 2.5 MG/3 ML Neb Soln NEB PRN (02:30)
[2024-09-02] MEDS ORDERED: Calcium Carbonate 500 MG Tab.Chew PO PRN (02:30)
[2024-09-02 02:35] LABS: BASE EXCESS ARTERIAL 4.6 mm/L; CARBOXYHEMOGLOBIN 1.8 % (0.0-1.6); O2 SATURATION ARTERIAL 92.7 % (95.0-98.0); OXYHEMOGLOBIN 90.1 %; PCO2 ARTERIAL 58.5 mmHg (35.0-42.0); PO2 ARTERIAL 75.3 mmHg (75.0-100.0); TOTAL HEMOGLOBIN 10.5 g/dL (12.0-16.0)
[2024-09-02] MEDS: Albuterol/Ipratropium 3.0-0.5 MG/3 ML Neb Soln NEB SCH (02:56)
[2024-09-02] MEDS: Morphine 2 MG/ML SYRINGE IVPUSH PRN (03:01)
[2024-09-02 06:09] LABS: HEMATOCRIT 34.1 % (34.3-46.0); HEMOGLOBIN 10.5 g/dL (11.2-15.5); MEAN CORPUSCULAR HEMOGLOBIN 32.8 pg (31.6-35.5); MEAN CORPUSCULAR HGB CONC 30.8 g/dL (31.6-35.5); MEAN CORPUSCULAR VOLUME 106.6 fL (81.4-99.0); RED BLOOD CELL COUNT 3.2 M/uL (3.77-5.24)
[2024-09-02 06:36] LABS: ANION GAP 11.3 mmol/L (5.0-14.0); CALCIUM 9.3 mg/dL (8.5-10.1); CREATININE 1.3 mg/dL (0.6-1.0); EST CRCL DRUG DOSING (CG) 23.2 mL/min; POTASSIUM,K 4.6 mmol/L (3.6-5.2)
[2024-09-02] MEDS ORDERED: Levothyroxine 50 MCG Tab PO SCH (07:30)
[2024-09-02] MEDS: Pantoprazole 40 MG Tab.CR PO SCH (08:13)
[2024-09-02] MEDS: Apixaban 2.5 MG Tab PO SCH (08:13)
[2024-09-02] MEDS: Levothyroxine 25 MCG Tab PO SCH (08:13)
[2024-09-02] MEDS: Lactobacillus Rhamnosus GG (Probiotic) Cap PO SCH (08:13)
[2024-09-02] MEDS: Polyethylene Glycol 3350 Powder 17 GM Packet PO SCH (08:14)
[2024-09-02] MEDS: Benzonatate 100 MG Cap PO PRN (09:17)
[2024-09-02] MEDS: LORazepam 0.5 MG Tab PO PRN (13:30)
[2024-09-02] MEDS: Morphine 10 MG/0.5 ML Oral Syringe PO PRN (20:37)
[2024-09-02] MEDS: Gabapentin 100 MG Cap PO SCH (20:38)
[2024-09-02] MEDS: Levofloxacin/Dextrose 5%-Water 750 MG in Premix Bag 1 BAG IV SCH (20:46)
[2024-09-02] MEDS: Acetaminophen 325 MG Tab PO PRN (22:28)
[2024-09-04] MEDS: Morphine 10 MG/0.5 ML Oral Syringe PO PRN (07:42)
[2024-09-04] MEDS: LORazepam ORAL Concentrate 1MG/0.5ML U/D BUCCAL PRN (14:17)
[2024-09-04 23:08] VITALS: BP 94/40; PULSE 61
== END 2024-09-05 23:25 | disposition expired | DRG 196 ==
LOC: JP.ED 23:41 → JP.MS 09-02 01:52
PROVIDERS: ADMIT Registered Nurse; ATTEND Hospitalist
PROC: 4A133R1 Monitoring of Arterial Saturation, Peripheral, Percutaneous Approach (ICD-10-PCS; principal; 2024-09-01)
PROC: 5A09357 Assistance with Respiratory Ventilation, Less than 24 Consecutive Hours, Continuous Positive Airway Pressure (ICD-10-PCS; 2024-09-02)
PROC: 3E03329 Introduction of Other Anti-infective into Peripheral Vein, Percutaneous Approach (ICD-10-PCS; 2024-09-02)
PROC: 5A0935A Assistance with Respiratory Ventilation, Less than 24 Consecutive Hours, High Flow/Velocity Cannula (ICD-10-PCS; 2024-09-03)
DX: J84.10 Pulmonary fibrosis, unspecified (principal); I50.43 Acute on chronic combined systolic (congestive) and diastolic (congestive) heart failure; J96.01 Acute respiratory failure with hypoxia; I10 Essential (primary) hypertension; I48.91 Unspecified atrial fibrillation; J18.9 Pneumonia, unspecified organism; I12.9 Hypertensive chronic kidney disease with stage 1 through stage 4 chronic kidney disease, or unspecified chronic kidney disease; N18.9 Chronic kidney disease, unspecified; J96.21 Acute and chronic respiratory failure with hypoxia; I13.0 Hypertensive heart and chronic kidney disease with heart failure and stage 1 through stage 4 chronic kidney disease, or unspecified chronic kidney disease; I48.11 Longstanding persistent atrial fibrillation; Z66 Do not resuscitate; Z51.5 Encounter for palliative care; E78.00 Pure hypercholesterolemia, unspecified; K59.09 Other constipation; M19.90 Unspecified osteoarthritis, unspecified site; G89.29 Other chronic pain; F41.9 Anxiety disorder, unspecified; F32.A Depression, unspecified; F15.90 Other stimulant use, unspecified, uncomplicated; E11.22 Type 2 diabetes mellitus with diabetic chronic kidney disease; N18.32 Chronic kidney disease, stage 3b; Z88.5 Allergy status to narcotic agent; Z98.49 Cataract extraction status, unspecified eye; Z90.710 Acquired absence of both cervix and uterus; Z98.890 Other specified postprocedural states; Z88.8 Allergy status to other drugs, medicaments and biological substances; Z79.899 Other long term (current) drug therapy; Z79.1 Long term (current) use of non-steroidal anti-inflammatories (NSAID); Z79.51 Long term (current) use of inhaled steroids; Z95.0 Presence of cardiac pacemaker; Z86.73 Personal history of transient ischemic attack (TIA), and cerebral infarction without residual deficits; Z79.01 Long term (current) use of anticoagulants
CPT/HCPCS: 36415 ×2; 36600; 71045 ×2; 80053; 82803; 83605; 83735; 85025; 87040 ×2; J0696; J1938; J1956; J2270; J2405; J2919; J3475; 80048; 85027; 94640; 99223; 99233; 99238; 99291; A9270-GY